=== PATIENT | male | born 1955 | race Caucasian/White ===

== ENCOUNTER → 2018-12-23 | Outpatient (CLI) | payer BC | END | disposition home or self-care (01) | LOC: CVU 11:43 | PROVIDERS: ATTEND Internal Medicine Cardiovascular Disease | DX: I35.0 Nonrheumatic aortic (valve) stenosis (principal); J44.9 Chronic obstructive pulmonary disease, unspecified; I10 Essential (primary) hypertension; Z87.891 Personal history of nicotine dependence; Z85.038 Personal history of other malignant neoplasm of large intestine | CPT/HCPCS: 93306 ==

== ENCOUNTER 2020-08-25 16:13 | Inpatient (IN) | payer BC ==
[~2020-08-25] VITALS: Ht 177.8 cm; Wt 93.0 kg
[2020-08-25] MEDS ORDERED: LOSA100T14 PO (16:47)
[2020-08-25] MEDS ORDERED: METO25TA35 PO (16:47)
[2020-08-25] MEDS ORDERED: METO50TA82 PO (16:47)
[2020-08-25] MEDS ORDERED: AMLO-211 PO ×2 (16:47)
--- NOTE | 2020-08-25 16:50 | NUR ---
CC OF VISION LOSS COMING AND GOING, WAS SEEN TODAY AT [facility] [facility] AND TOLD TO COME HERE AFTER CARATOID US DONE, UNSURE OF RESULTS, FOR SURGICAL CONSULT. PT STATES WHEN VISIONS GOES AWAY HIS BP ALSO GOES LOW, PT HAS DIARY OF BP OVER LAST FEW MONTHS AND LOWEST BP WILL GO WHEN VISION GOES AWAY IS SBP 98. VISION PROBLEMS HAVE HAPPENED OVER LAST TWO MONTHS. AT BEDSIDE.
[2020-08-25] MEDS ORDERED: ASPIRIN 325 MG TABLET PO ONE (17:30)
[2020-08-25] MEDS ORDERED: CLOPIDOGREL 300 MG TABLET PO ONE (17:30)
--- NOTE | 2020-08-25 17:34 | NUR ---
asa changed per dr tamez verbal to 81 mg. stated chewable 81 mg asa ok. primary nurse made aware. Addendum: 08/25/20 at 1757 by SAMANTHA spoke with dr tamez regarding inability in [facility] to change dosage. dosage was given and mdm made aware. medication was given by joyce patiño as per aug. dr tamez made aware and ok with 325 mg given.
[2020-08-25] MEDS ORDERED: CLOPIDOGREL 75 MG TABLET ONE (17:42)
[2020-08-25] MEDS ORDERED: ASPIRIN 325 MG TABLET ONE (17:42)
[2020-08-25 17:48] LABS: BASOPHILS % (AUTO) 0 % (0-1); EOSINOPHILS % (AUTO) 2 % (1-7); LYMPHOCYTES % (AUTO) 21 % (22-44); MEAN CORPUSCULAR HEMOGLOBIN 33.2 pg (27.5-34.5); MEAN CORPUSCULAR HGB CONC 33.9 g/dL (33.2-36.2); MEAN PLATELET VOLUME 10.1 fL (7.4-10.4); MONOCYTES % (AUTO) 12 % (2-9); NEUTROPHILS % (AUTO) 64 % (42-75); PLATELET COUNT 134 x10^3/uL (130-400); RED BLOOD COUNT 4.41 x10^6/uL (4.38-5.82); RED CELL DISTRIBUTION WIDTH 13.4 % (9.4-14.8)
[2020-08-25 17:50] LABS: MD NO
[2020-08-25 17:57] LABS: ALBUMIN 4.1 g/dL (3.4-5.0); ANION GAP 4 mmol/L (5-15); CALCIUM 9.3 mg/dL (8.5-10.1); CHLORIDE 109 mmol/L (98-107); CREATININE 1.18 mg/dL (0.7-1.3)
[2020-08-25 18:01] LABS: TROPONIN I < 0.015 ng/mL (0.000-0.045)
--- NOTE | 2020-08-25 18:16 | NUR ---
PT TO IMAGING
[2020-08-25] MEDS ORDERED: OMNIPAQUE 350 MG/ML, 100ML BOTTLE ONE (18:38)
--- NOTE | 2020-08-25 19:30 | NUR ---
DR. OLMSTEAD IN ROOM.
--- NOTE | 2020-08-25 20:09 | NUR ---
[facility] IN ROOM
[2020-08-25] MEDS ORDERED: ONDANSETRON ODT 4 MG PO PRN (20:30)
[2020-08-25] MEDS ORDERED: POLYETHYLENE GLYCOL 17 GM PACKET PO PRN (20:30)
[2020-08-25] MEDS ORDERED: ACETAMINOPHEN 325 MG TABLET PO PRN (20:30)
[2020-08-25] MEDS ORDERED: BISACODYL 10 MG SUPP PR PRN (20:30)
--- NOTE | 2020-08-25 20:52 | NUR ---
REPORT GIVEN TO SYMONE QUINONES
[2020-08-25] MEDS ORDERED: METOPROLOL TARTRATE 25 MG TAB PO SCH (21:00)
[2020-08-25] MEDS ORDERED: AMLODIPINE 2.5 MG TABLET PO SCH (21:00)
[2020-08-25 21:09] VITALS: BP 171/96
[2020-08-25 21:23] VITALS: BP 153/92
[2020-08-25] MEDS: SODIUM CHLORIDE FLUSH 10ML SYR IVF SCH (21:28)
[2020-08-25] MEDS ORDERED: ALBU8.5H8 PO (22:11)
[2020-08-25] MEDS ORDERED: hydrALAzine 20 MG/ML, 1ML IV PRN (23:00)
[2020-08-25] MEDS ORDERED: ALBUTEROL HFA 90 MCG/SPRAY INH PRN (23:00)
[2020-08-26 01:16] VITALS: BP 152/79
[2020-08-26 04:21] LABS: BASOPHILS % (AUTO) 1 % (0-1); EOSINOPHILS % (AUTO) 3 % (1-7); LYMPHOCYTES % (AUTO) 19 % (22-44); MEAN CORPUSCULAR HEMOGLOBIN 33.3 pg (27.5-34.5); MEAN CORPUSCULAR HGB CONC 34.2 g/dL (33.2-36.2); MEAN PLATELET VOLUME 10.1 fL (7.4-10.4); MONOCYTES % (AUTO) 11 % (2-9); NEUTROPHILS % (AUTO) 66 % (42-75); PLATELET COUNT 127 x10^3/uL (130-400); RED BLOOD COUNT 4.52 x10^6/uL (4.38-5.82); RED CELL DISTRIBUTION WIDTH 13.1 % (9.4-14.8)
[2020-08-26 04:27] LABS: MD NO
[2020-08-26 04:36] LABS: ANION GAP 6 mmol/L (5-15); CALCIUM 8.9 mg/dL (8.5-10.1); CHLORIDE 111 mmol/L (98-107); CREATININE 0.95 mg/dL (0.7-1.3)
[2020-08-26 06:58] VITALS: BP 160/85
[2020-08-26] MEDS ORDERED: LOSARTAN 100 MG TAB PO SCH (09:00)
[2020-08-26] MEDS ORDERED: METOPROLOL TARTRATE 50 MG TAB PO SCH (09:00)
[2020-08-26] MEDS: SODIUM CHLORIDE FLUSH 10ML SYR IVF SCH ×2 (09:00→21:42)
[2020-08-26] MEDS ORDERED: AMLODIPINE 5 MG TABLET PO SCH (09:00)
[2020-08-26] MEDS: SENNA/DOCUSATE TABLET PO SCH (09:00)
[2020-08-26 09:13] LABS: CHOL/HDL RATIO 1.7; LDL/HDL RATIO 0.3 (0.5-3.0)
[2020-08-26] MEDS ORDERED: CHLORHEXIDINE 15 ML UDC ONE (09:33)
[2020-08-26] MEDS ORDERED: PAPAVERINE 30 MG/ML, 2ML ONE (09:34)
[2020-08-26] MEDS ORDERED: PROTAMINE SULFATE 10 MG/ML, 5ML ONE (09:34)
[2020-08-26] MEDS ORDERED: HEPARIN 1,000 UNITS/ML, 10ML ONE ×2 (09:35→09:46)
[2020-08-26] MEDS ORDERED: HEPARIN 1,000 UNITS/ML, 30ML ONE (09:35)
[2020-08-26] MEDS ORDERED: BACITRACIN 50,000 UNIT ONE (09:35)
[2020-08-26] MEDS ORDERED: BUPIVACAINE/PF-EPI 0.5% 1:200K ONE (09:35)
[2020-08-26] MEDS ORDERED: THROMBIN 20,000 UNIT VIAL TP ONE (09:35)
[2020-08-26] MEDS ORDERED: LIDOCAINE/PF 1%, 30ML ONE (09:35)
[2020-08-26] MEDS ORDERED: FENTANYL PF 250 MCG/5ML ONE (09:50)
[2020-08-26] MEDS ORDERED: PROPOFOL 50 ML ONE (09:50)
[2020-08-26] MEDS ORDERED: PHENYLEPHRINE 10 MG/ML ONE (10:01)
[2020-08-26] MEDS ORDERED: SUCCINYLCHOLINE 20 MG/ML, 10ML ONE (10:22)
[2020-08-26] MEDS ORDERED: ROCURONIUM 10MG/ML,5ML ONE (10:22)
[2020-08-26] MEDS ORDERED: SUGAMMADEX 200 MG/2 ML IVPush ONE (10:23)
[2020-08-26] MEDS ORDERED: PROPOFOL 10 MG/ML, 20ML ONE (10:23)
[2020-08-26] MEDS ORDERED: CEFAZOLIN 1,000 MG ONE ×2 (10:23)
[2020-08-26] MEDS ORDERED: ONDANSETRON 2MG/ML, 2ML ONE (10:23)
[2020-08-26] MEDS ORDERED: DEXAMETHASONE 4 MG/ML, 1ML ONE (10:23)
[2020-08-26] MEDS ORDERED: ONDANSETRON 2MG/ML, 2ML IVPush PRN (10:30)
[2020-08-26] MEDS ORDERED: OXYcodone 5 MG/5 ML ORAL.SOL UDC PO PRN (10:30)
[2020-08-26] MEDS ORDERED: EPHEDRINE 50 MG/ML, 1ML IM PRN (10:30)
[2020-08-26] MEDS ORDERED: ACETAMINOPHEN 325 MG TABLET PO PRN (10:30)
[2020-08-26] MEDS ORDERED: EPHEDRINE 50 MG/ML, 1ML IVPush PRN (10:30)
[2020-08-26] MEDS ORDERED: HYDROmorphone 1 MG/ML, 1ML INJ IVPush PRN (10:30)
[2020-08-26] MEDS ORDERED: DIAZEPAM 5 MG/ML, 2ML IVPush PRN (10:30)
[2020-08-26] MEDS ORDERED: DIPHENHYDRAMINE 50 MG/ML, 1ML IVPush PRN (10:30)
[2020-08-26] MEDS ORDERED: PROMETHAZINE 25 MG/ML, 1ML IVPush PRN (10:30)
[2020-08-26] MEDS ORDERED: MEPERIDINE/PF 25MG/0.5ML IVPush PRN (10:30)
[2020-08-26] MEDS ORDERED: LABETALOL 5MG/ML, 20ML IV PRN (10:30)
[2020-08-26] MEDS ORDERED: FENTANYL PF 100 MCG/2ML ONE (12:19)
[2020-08-26] MEDS ORDERED: OXYcodone 5 MG/5 ML ORAL.SOL UDC ONE (12:19)
[2020-08-26] MEDS: FENTANYL PF 100 MCG/2ML IV PRN ×2 (12:28→12:36)
[2020-08-26 14:25] VITALS: BP 93/61
[2020-08-26] MEDS ORDERED: LABETALOL 5MG/ML, 20ML IVPush PRN (15:00)
[2020-08-26] MEDS ORDERED: NITROPRUSSIDE 50 MG in DEXTROSE 5% 248 ML IV SCH (15:00)
[2020-08-26] MEDS ORDERED: ONDANSETRON 2MG/ML, 2ML IV PRN (15:00)
[2020-08-26] MEDS ORDERED: PHENYLEPHRINE 50 MG in SODIUM CHLORIDE 0.9% 245 ML IV SCH (15:00)
[2020-08-26] MEDS ORDERED: MEPERIDINE/PF 50 MG/ML IV PRN (15:00)
[2020-08-26] MEDS: POTASSIUM CHLORIDE 20 MEQ in D5%-0.45% NACL 1,000 ML IV SCH (15:36)
[2020-08-26] MEDS: HYDROcodone/APAP 5/325 TABLET PO PRN ×2 (16:50→21:41)
[2020-08-26] MEDS ORDERED: ALBUMIN HUMAN 25% 100 ML IV ONE (17:30)
[2020-08-26 19:42] VITALS: BP 74/52
[2020-08-26] MEDS ORDERED: AMLODIPINE 2.5 MG TABLET PO SCH (21:00)
[2020-08-26] MEDS ORDERED: METOPROLOL TARTRATE 25 MG TAB PO SCH (21:00)
[2020-08-26 21:37] VITALS: BP 93/63
[2020-08-27] VITALS (8 sets, daily range): BP systolic 108–143; BP diastolic 65–83
[2020-08-27] MEDS: POTASSIUM CHLORIDE 20 MEQ in D5%-0.45% NACL 1,000 ML IV SCH (04:36)
[2020-08-27] MEDS: HYDROcodone/APAP 5/325 TABLET PO PRN ×3 (04:50→19:46)
[2020-08-27 05:37] LABS: BASOPHILS % (AUTO) 0 % (0-1); EOSINOPHILS % (AUTO) 0 % (1-7); LYMPHOCYTES % (AUTO) 8 % (22-44); MEAN CORPUSCULAR HEMOGLOBIN 33.3 pg (27.5-34.5); MEAN CORPUSCULAR HGB CONC 33.6 g/dL (33.2-36.2); MEAN PLATELET VOLUME 10.2 fL (7.4-10.4); MONOCYTES % (AUTO) 7 % (2-9); NEUTROPHILS % (AUTO) 84 % (42-75); PLATELET COUNT 116 x10^3/uL (130-400); RED BLOOD COUNT 3.77 x10^6/uL (4.38-5.82); RED CELL DISTRIBUTION WIDTH 13.1 % (9.4-14.8)
[2020-08-27 05:53] LABS: CALCIUM 8.8 mg/dL (8.5-10.1); CHLORIDE 108 mmol/L (98-107)
[2020-08-27 05:57] LABS: ANION GAP 6 mmol/L (5-15); CREATININE 1.88 mg/dL (0.7-1.3)
[2020-08-27 06:06] LABS: MD NO
[2020-08-27] MEDS: SODIUM CHLORIDE FLUSH 10ML SYR IVF SCH ×2 (09:00→21:05)
[2020-08-27] MEDS ORDERED: LOSARTAN 50MG TABLET PO SCH (09:00)
[2020-08-27] MEDS ORDERED: AMLODIPINE 5 MG TABLET PO SCH ×2 (09:00)
[2020-08-27] MEDS ORDERED: METOPROLOL TARTRATE 50 MG TAB PO SCH (09:00)
[2020-08-27] MEDS: AMLODIPINE 2.5 MG TABLET PO SCH ×2 (09:00→21:04)
[2020-08-27] MEDS: SENNA/DOCUSATE TABLET PO SCH (09:25)
[2020-08-27] MEDS: ALBUMIN HUMAN 25% 100 ML IV SCH ×2 (09:27→14:40)
[2020-08-27] MEDS: METOPROLOL TARTRATE 25 MG TAB PO SCH ×2 (09:27→21:04)
[2020-08-27] MEDS: SODIUM CHLORIDE 0.9% 1,000 ML IV SCH ×2 (09:32→23:52)
[2020-08-28 00:31] VITALS: BP 130/81
[2020-08-28 03:49] VITALS: BP 151/86
[2020-08-28] MEDS: HYDROcodone/APAP 5/325 TABLET PO PRN (04:03)
[2020-08-28 06:11] LABS: BASOPHILS % (AUTO) 0 % (0-1); EOSINOPHILS % (AUTO) 1 % (1-7); LYMPHOCYTES % (AUTO) 17 % (22-44); MEAN CORPUSCULAR HEMOGLOBIN 33.4 pg (27.5-34.5); MEAN CORPUSCULAR HGB CONC 33.8 g/dL (33.2-36.2); MEAN PLATELET VOLUME 10.8 fL (7.4-10.4); MONOCYTES % (AUTO) 10 % (2-9); NEUTROPHILS % (AUTO) 73 % (42-75); PLATELET COUNT 104 x10^3/uL (130-400); RED BLOOD COUNT 3.87 x10^6/uL (4.38-5.82); RED CELL DISTRIBUTION WIDTH 13.1 % (9.4-14.8)
[2020-08-28 06:16] LABS: MD NO
[2020-08-28 06:19] LABS: ANION GAP 8 mmol/L (5-15); CALCIUM 8.5 mg/dL (8.5-10.1); CHLORIDE 113 mmol/L (98-107)
[2020-08-28 06:20] LABS: CREATININE 1.11 mg/dL (0.7-1.3)
[2020-08-28 08:00] VITALS: BP 150/82
[2020-08-28] MEDS: METOPROLOL TARTRATE 25 MG TAB PO SCH (08:40)
[2020-08-28] MEDS: SENNA/DOCUSATE TABLET PO SCH (08:41)
[2020-08-28] MEDS: SODIUM CHLORIDE FLUSH 10ML SYR IVF SCH (08:42)
[2020-08-28] MEDS ORDERED: AMLODIPINE 5 MG TABLET PO SCH (09:00)
[2020-08-28] MEDS ORDERED: ASPI81TA45 PO (10:10)
[2020-08-28] MEDS ORDERED: ACET325T26 PO (10:10)
[2020-08-28] MEDS ORDERED: METO25TA35 PO (10:10)
[2020-08-28] MEDS ORDERED: AMLO-211 PO (10:10)
[2020-08-28] MEDS ORDERED: LOSA100T14 PO (10:10)
== END 2020-08-28 11:25 | disposition home or self-care (01) | DRG 37 ==
LOC: OR 18:19 → EDIP 20:01 → 3N 21:07 → 4NE 08-26 14:03 → DCLOUNGE 08-28 11:15
PROVIDERS: ADMIT Internal Medicine; ATTEND Internal Medicine
PROC: 03CL0ZZ Extirpation of Matter from Left Internal Carotid Artery, Open Approach (ICD-10-PCS; principal; 2020-08-25)
PROC: 03UL0KZ Supplement Left Internal Carotid Artery with Nonautologous Tissue Substitute, Open Approach (ICD-10-PCS; 2020-08-25)
PROC: 4A1004G Monitoring of Central Nervous Electrical Activity, Intraoperative, Open Approach (ICD-10-PCS; 2020-08-25)
DX: I65.22 Occlusion and stenosis of left carotid artery (principal); N17.0 Acute kidney failure with tubular necrosis; I95.81 Postprocedural hypotension; I66.21 Occlusion and stenosis of right posterior cerebral artery; E78.5 Hyperlipidemia, unspecified; J44.9 Chronic obstructive pulmonary disease, unspecified; I10 Essential (primary) hypertension; D75.89 Other specified diseases of blood and blood-forming organs; Z20.822 Contact with and (suspected) exposure to COVID-19; Z85.038 Personal history of other malignant neoplasm of large intestine; Z87.891 Personal history of nicotine dependence; Z90.49 Acquired absence of other specified parts of digestive tract; Z98.1 Arthrodesis status; Z72.89 Other problems related to lifestyle; Z88.0 Allergy status to penicillin; Z88.5 Allergy status to narcotic agent
CPT/HCPCS: 36415; 70496; 70498; 80048; 80061; 82040; 82607; 83735; 84100; 84443; 84484; 85025; 87635; 93005; 95938; 95941; 99285; C1729; G0378; J0690; J1100; J1644; J2405; J2704; J2720; J3010; J3480; P9047; Q9967; C1768; J0330; J2370; J2440; J7030

== ENCOUNTER → 2020-08-25 | Outpatient (CLI) | payer BC ==
[~2020-08-25] MED LIST: ALBU8.5H8 PO; AMLO-211 PO; LOSA100T14 PO; METO25TA35 PO; METO50TA82 PO
== END | disposition home or self-care (01) ==
LOC: CVU 14:17
PROVIDERS: ATTEND Nurse Practitioner Family
DX: I65.23 Occlusion and stenosis of bilateral carotid arteries (principal); R09.89 Other specified symptoms and signs involving the circulatory and respiratory systems
CPT/HCPCS: 93880

== ENCOUNTER → 2020-09-08 | Outpatient (CLI) | payer BC ==
[~2020-09-08] MED LIST changes: +ACET325T26 PO; +ASPI81TA45 PO
== END | disposition home or self-care (01) ==
LOC: CFH 10:38
PROVIDERS: ATTEND Internal Medicine Cardiovascular Disease
DX: I34.8 Other nonrheumatic mitral valve disorders (principal); I10 Essential (primary) hypertension; E78.5 Hyperlipidemia, unspecified; Z87.891 Personal history of nicotine dependence
CPT/HCPCS: 93306